=== PATIENT | male | born 1990 | race Caucasian/White ===

== ENCOUNTER 2018-02-28 19:16 | Inpatient (IN) | payer OTHER ==
[~2018-02-28] VITALS: Ht 170.2 cm; Wt 75.3 kg
[2018-02-28 21:30] VITALS: BP 136/76; PULSE 72; RESP 16; TEMP 97.9; O2SAT 98
[2018-02-28] MEDS ORDERED: MAGNESIUM HYDROXIDE SUSP 30 ML CUP PO PRN (21:30)
[2018-02-28] MEDS ORDERED: ALUMINUM/MAGNESIUM/SIMETH 30 ML CUP PO PRN (21:30)
[2018-02-28] MEDS ORDERED: diphenhydrAMINE HCL 50 MG/ML VIAL - HS PRN IM (21:30)
[2018-02-28] MEDS ORDERED: LORazepam 2 MG/ML VIAL IM PRN (21:30)
[2018-02-28] MEDS ORDERED: hydrOXYzine HCL 50 MG TAB PO PRN (21:30)
[2018-03-01 05:49] VITALS: BP 121/70; PULSE 77; RESP 18; TEMP 97.5; O2SAT 98
[2018-03-01] MEDS: NICOTINE 21 MG/24 HR PATCH T-DERMAL SCH (09:00)
[2018-03-01] MEDS ORDERED: OLANZapine IM 10 MG VIAL IM ONE ×2 (09:27→09:30)
--- NOTE | 2018-03-01 12:13 | HHI.PYPN ---
Subjective Remarks Patient is a 27-year-old man, single, previously living with brother currently homeless, unemployed, with a past psychiatric history of of bipolar disorder, 3 previous psychiatric admissions, no previous suicide attempt or self -injurious behavior, substance use history significant for marijuana use, no past medical history, who was brought in under [place] due to patient found dancing in the streets, noncompliant with medications and recently being kicked out of his brother's home which patient was admitted to the inpatient psychiatry unit for further evaluation and management. Prior to interview patient had required ETO due to increasingly manic behavior including dancing, shadowboxing, and intrusiveness with other patients and staff which he received olanzapine 10 mg IM 1. Patient was later seen noted to be lying hospital bed asleep was able to wake up intermittently to cooperate and engage in interview today. Patient states that he "need help with my mind" referring to returning back on his medications. Patient states that he was dancing in the corner of his treatment which a woman had asked him to stop and eventually called police which patient was brought into the hospital for evaluation. Patient states that he has auditory hallucinations that "come in and out" but denying a time of interview. Patient also reported visual hallucinations of demons and paranoid ideations that demons are after him. Mental Status Examination Appearance: Appropriate Consciousness: Alert Orientation: x4 Motor Activity: Normal gait Speech: Unremarkable Language: Adequate Fund of Knowledge: Adequate Attention and Concentration: Adequate Memory: Unremarkable Mood: Appropriate Affect: Appropriate Thought Process & Associations: Intact Thought Content: Bizarre thinking Hallucination Type: Auditory, Visual Delusion Type: Bizarre Suicidal Ideation: No Suicidal Plan: No Suicidal Intention: No Homicidal Ideation: No Homicidal Plan: No Homicidal Intention: No Insight: Poor Judgment: Poor Results Vitals/IOs Vital Signs Date Time Temp Pulse Resp B/P (MAP) Pulse Ox O2 Delivery O2 Flow Rate FiO2 03/01/18 05:49 97.5 77 18 121/70 (87) 98 Assessment & Plan Problem List: (1) Bipolar disorder, current episode manic severe with psychotic features ICD Codes: F31.2 - Bipolar disorder, current episode manic severe with psychotic features Assessment & Plan: Patient is acutely manic and psychotic, I agree and concur with Dr. Portillo assessment and plan. Assessment & Plan Estimated LOS: days Justification for Cont. Inpt. Admission Dangelo Rodriguez MD March 01, 2018 12:13
--- NOTE | 2018-03-01 14:07 | HHI.HP ---
Provisional Diagnosis Admission Date February 28, 2018 at 20:35 [place]. Bipolar disorder, current episode manic Certification of Person's Competence To Provide Express and Informed Consent I have personally examined Heriberto Lopez , a person being served at [facility] on, March 01, 2018 13:57. Express and informed consent means consent voluntarily given in writing, by a competent person, after sufficient explanation and disclosure of the subject matter involved to enable the person to make a knowing and willful decision without any element of force, fraud, deceit, duress, or other form of constraint or coercion. This person is 18 years of age or older, is not now known to be incompetent to consent to treatment with a guardian advocate, and does not have a health care surrogate or proxy currently making medical treatment decisions. I have found this person to be one of the following: [] Competent to provide express and informed consent, as defined above, for voluntary admission to this facility and is competent to provide express and informed consent for treatment. He/she has the consistent capacity to make well reasoned, willful, and knowing decisions concerning his or her medical or mental health treatment. The person fully and consistently understands the purpose of the admission for examination/placement and is fully capable of personally exercising all rights assured under [place] [] Incompetent to provide express and informed consent to voluntary admission, and this is incompetent to provide express and informed consent to treatment. The person must be transferred to involuntary status and a petition for a guardian advocate filed with the Circuit Court. [] Refusing to provide express and informed consent to voluntary admission but is competent to provide express and informed consent for treatment. The person must be discharged or transferred to involuntary status. Form shall be completed within 24 hours of a person's arrival at the receiving facility and filed in the clinical record of each person: 1. Admitted on a voluntary basis 2. Permitted to provide express and informed consent to his/her own treatment 3. Allowed to transfer from involuntary to voluntary status 4. Prior to permitting a person to consent to his or her own treatment after having been previously found incompetent to consent to treatment. History of Present Illness Capacity: Has Capacity HPI Patient is a 27-year-old man, single, previously living with brother currently homeless, unemployed, with a past psychiatric history of of bipolar disorder, 3 previous psychiatric admissions, no previous suicide attempt or self -injurious behavior, substance use history significant for marijuana use, no past medical history, who was brought in under [place] due to patient found dancing in the streets, noncompliant with medications and recently being kicked out of his brother's home which patient was admitted to the inpatient psychiatry unit for further evaluation and management. Prior to interview patient had required ETO due to increasingly manic behavior including dancing, shadowboxing, and intrusiveness with other patients and staff which he received olanzapine 10 mg IM 1. Patient was later seen noted to be lying hospital bed asleep was able to wake up intermittently to cooperate and engage in interview today. Patient states that he "need help with my mind" referring to returning back on his medications. Patient states that he was dancing in the corner of his treatment which a woman had asked him to stop and eventually called police which patient was brought into the hospital for evaluation. Patient states that he has auditory hallucinations that "come in and out" but denying a time of interview. Patient also reported visual hallucinations of demons and paranoid ideations that demons are after him. Past psychiatric history: Previous psychiatric diagnoses of bipolar disorder, 3 previous psychiatric admissions, no previous suicide attempt or self-injurious behavior. Patient denies any outpatient psychiatric services. Previous medication includes Tegretol. Substance use history: Patient reports drinking alcohol "sometimes", reports daily marijuana use, denies any other substance use. Past medical history: Denies, Allergies: NKDA Social history: Single, domiciled recently with his brother, Darren Lopez, but as per chart was recently kicked out, unemployed, recently being [place]. Collateral contact: Darren Lopez, , mother is Aminah Burrows . Legal history as per chart patient with a pending court date for battery charge. Review of Systems Except as stated in HPI: all other systems reviewed are Neg Past Psych History Violence risk - others (6 mos) Elevated due to recent pending charges for battery. Violence risk - self (6 mos) Low Substance Abuse History Drugs/Alcohol past 12 months Patient reports drinking alcohol "sometimes", reports daily marijuana use, denies any other substance use. Past Family Social History Coded Allergies: No Known Allergies (Verified Allergy, Unknown, 02/28/18) Current Medications Medications (Trade) Dose Ordered Sig/Fannie Route Start Time Stop Time Status Last Admin (Ativan) 1 mg Q6H PRN PO 02/28/18 21:30 (Ativan Inj) 1 mg Q6H PRN IM 02/28/18 21:30 (Atarax) 50 mg Q6H PRN PO 02/28/18 21:30 (Benadryl) 50 mg HS PRN PO 02/28/18 21:30 (Benadryl Inj) 50 mg HS PRN IM 02/28/18 21:30 (Tylenol) 650 mg Q4H PRN PO 02/28/18 21:30 (Milk Of Magnesia Liq) 30 ml DAILY PRN PO 02/28/18 21:30 (Mag-Al Plus Susp Liq) 30 ml Q6H PRN PO 02/28/18 21:30 (Habitrol 21 Mg Patch.24 Hr) 1 patch DAILY T-DERMAL 03/01/18 09:00 Miscellaneous Information 1 HS T-DERMAL 03/01/18 21:00 (ZyPREXA) 5 mg Q12HR PO 03/01/18 21:00 Social History Single, domiciled recently with his brother, Darren Lopez, but as per chart was recently kicked out, unemployed, recently being [place]. Collateral contact: Darren Lopez, , mother is Aminah Burrows [phone]. Patient's Strengths (min. 2) Verbal and communicative Physical Exam Patient not noted to be in acute distress, no gross motor abnormalities, no tremors or EPS, no noted psychomotor retardation or agitation. Vital Signs Vital Signs Date Time Temp Pulse Resp B/P (MAP) Pulse Ox O2 Delivery O2 Flow Rate FiO2 03/01/18 05:49 97.5 77 18 121/70 (87) 98 Mental Status Examination Appearance: Dirty, Disheveled Consciousness: Somnolent Orientation: Person, Place Speech: Slow Language: Adequate Fund of Knowledge: Inadequate Attention and Concentration: Inadequate Memory: Impaired Mood: Other ("Not good") Affect: Blunt Thought Process & Associations: Other ([place]) Thought Content: Hallucinations, Delusional Hallucination Type: Auditory, Visual Delusion Type: Bizarre, Paranoid Suicidal Ideation: No Suicidal Plan: No Suicidal Intention: No Homicidal Ideation: No Homicidal Plan: No Homicidal Intention: No Insight: Poor Judgment: Poor Assessment & Plan Problem List: (1) Bipolar disorder, current episode manic severe with psychotic features ICD Codes: F31.2 - Bipolar disorder, current episode manic severe with psychotic features Assessment & Plan Estimated LOS: 5-7 days. Patient is a 27-year-old man, single, previously living with brother currently homeless, unemployed, with a past psychiatric history of of bipolar disorder, 3 previous psychiatric admissions, no previous suicide attempt or self-injurious behavior, substance use history significant for marijuana use, no past medical history, who was brought in under [place] due to patient found dancing in the streets, noncompliant with medications and recently being kicked out of his brother's home which patient was admitted to the inpatient psychiatry unit for further evaluation and management. Patient this time will be admitted under involuntary hospitalization first opinion started, we will request second opinion. patient retains capacity to consent for medications. We will start olanzapine 5 mg p.o. twice daily for psychosis and mood stabilization. Continue monitor mood and behavior. Social work intervention for psychosocial assessment. Collateral formation pending. Discharge planning in progress. Discharge Planning To be determined. Flo Portillo MD March 01, 2018 14:07
[2018-03-01] MEDS: LORazepam 1 MG TAB PO PRN (15:14)
[2018-03-01 16:35] VITALS: BP 129/69; PULSE 79; RESP 18; TEMP 97.2; O2SAT 99
[2018-03-01] MEDS: REMOVE OLD NICOTINE PATCH T-DERMAL SCH (21:00)
[2018-03-01] MEDS: OLANZapine 5 MG TAB PO SCH (21:31)
[2018-03-02 06:32] VITALS: BP 124/74; PULSE 80; RESP 20; TEMP 97.6; O2SAT 99
[2018-03-02] MEDS: OLANZapine 5 MG TAB PO SCH ×3 (07:16→21:00)
[2018-03-02] MEDS: NICOTINE 21 MG/24 HR PATCH T-DERMAL SCH (09:00)
--- NOTE | 2018-03-02 14:31 | HHI.PYPN ---
Subjective Remarks Patient was seen and case discussed with nursing. Patient had a temper tantrum this morning when he got loud started getting aggressive. He got an ETO of Ativan. He was later seen in locked seclusion jumping on the bed and throwing pillows. Medication reviewed and he does not have IM backup of Zyprexa. Psychoeducation done with patient and he agreed to take p.o. Zyprexa. Insight and general is poor and affect remains labile. He denies hallucinations but is likely responding to internal stimuli Mental Status Examination Appearance: Dirty, Disheveled Consciousness: Somnolent Orientation: Person, Place Speech: Slow Language: Adequate Fund of Knowledge: Inadequate Attention and Concentration: Inadequate Memory: Impaired Mood: Angry, Oppositional, Other ("Not good") Affect: Blunt Thought Process & Associations: Other ([place]) Thought Content: Hallucinations, Delusional Hallucination Type: Auditory, Visual Delusion Type: Bizarre, Paranoid Suicidal Ideation: No Suicidal Plan: No Suicidal Intention: No Homicidal Ideation: No Homicidal Plan: No Homicidal Intention: No Insight: Poor Judgment: Poor Results Vitals/IOs Vital Signs Date Time Temp Pulse Resp B/P (MAP) Pulse Ox O2 Delivery O2 Flow Rate FiO2 03/02/18 06:32 97.6 80 20 124/74 (91) 99 Assessment & Plan Problem List: (1) Bipolar disorder, current episode manic severe with psychotic features ICD Codes: F31.2 - Bipolar disorder, current episode manic severe with psychotic features Assessment & Plan Add IM backup of Zyprexa Justification for Cont. Inpt. Patient would decompensate in a less restrictive setting Felton Duggan DO March 02, 2018 14:31
[2018-03-02] MEDS ORDERED: OLANZapine IM 10 MG VIAL IM PRN (14:45)
[2018-03-02] MEDS ORDERED: HALOPERIDOL LACTATE 5 MG/ML AMP ONE (16:31)
[2018-03-02] MEDS ORDERED: diphenhydrAMINE HCL 50 MG/ML VIAL IM ONE (16:39)
[2018-03-02] MEDS ORDERED: HALOPERIDOL LACTATE 5 MG/ML AMP IM ONE (16:39)
[2018-03-02] MEDS ORDERED: LORazepam 2 MG/ML VIAL IM ONE (16:39)
[2018-03-02] MEDS: REMOVE OLD NICOTINE PATCH T-DERMAL SCH (21:00)
[2018-03-03] MEDS: LORazepam 1 MG TAB PO PRN ×2 (02:57→17:37)
[2018-03-03 06:39] VITALS: BP 115/71; PULSE 70; RESP 18; TEMP 97.1; O2SAT 97
[2018-03-03] MEDS: NICOTINE 21 MG/24 HR PATCH T-DERMAL SCH (08:13)
[2018-03-03] MEDS: OLANZapine 5 MG TAB PO SCH (08:54)
--- NOTE | 2018-03-03 14:44 | HHI.PYPN ---
Subjective Remarks Patient was seen and case discussed with nursing. Patient has improved. He is no longer aggressive or threatening. He remains elevated and grandiose. Patient has bizarre delusion that Min aD Silva wants him to sing and perform for him. He does not plan to seek out on the president Mental Status Examination Appearance: Dirty, Disheveled Consciousness: Somnolent Orientation: Person, Place Speech: Slow Language: Adequate Fund of Knowledge: Inadequate Attention and Concentration: Inadequate Memory: Impaired Mood: Angry, Oppositional, Other ("Not good") Affect: Blunt Thought Process & Associations: Other ([place]) Thought Content: Hallucinations, Delusional Hallucination Type: Auditory (The devil and Lucifer) Delusion Type: Bizarre, Paranoid Suicidal Ideation: No Suicidal Plan: No Suicidal Intention: No Homicidal Ideation: No Homicidal Plan: No Homicidal Intention: No Insight: Poor Judgment: Poor Results Vitals/IOs Vital Signs Date Time Temp Pulse Resp B/P (MAP) Pulse Ox O2 Delivery O2 Flow Rate FiO2 03/03/18 06:39 97.1 70 18 115/71 (86) 97 Assessment & Plan Problem List: (1) Bipolar disorder, current episode manic severe with psychotic features ICD Codes: F31.2 - Bipolar disorder, current episode manic severe with psychotic features Assessment & Plan We will increase Zyprexa to 10 mg p.o. twice daily Justification for Cont. Inpt. Patient would decompensate in a less restrictive setting Felton Duggan DO March 03, 2018 14:44
[2018-03-03 17:09] VITALS: BP 112/67; PULSE 68; RESP 17; TEMP 97.5; O2SAT 98
[2018-03-03] MEDS: OLANZapine 10 MG TAB PO SCH (20:39)
[2018-03-03] MEDS: REMOVE OLD NICOTINE PATCH T-DERMAL SCH (21:00)
[2018-03-03] MEDS: ACETAMINOPHEN 325 MG TAB PO PRN (21:23)
[2018-03-04] MEDS: ACETAMINOPHEN 325 MG TAB PO PRN (01:42)
[2018-03-04] MEDS: LORazepam 1 MG TAB PO PRN ×2 (01:42→20:35)
[2018-03-04 07:08] VITALS: BP 118/71; PULSE 79; RESP 20; TEMP 97.6; O2SAT 99
[2018-03-04] MEDS: OLANZapine 10 MG TAB PO SCH ×2 (08:52→20:35)
[2018-03-04] MEDS: NICOTINE 21 MG/24 HR PATCH T-DERMAL SCH (08:52)
--- NOTE | 2018-03-04 14:15 | HHI.PYPN ---
Subjective Remarks Patient seen for follow, chart reviewed. Discussion nursing staff reported the patient slept 2 hours last evening had required Ativan as needed at 2 AM, patient noted to be jumping up and down the bed last evening. Patient noted to be testing limits on the unit, but compliant with treatment. Patient was found and being in a day room noted to be inappropriate sexually preoccupied with nurses. Patient states that he has been having difficulty sleeping, continues to endorse having auditory or visual hallucinations stating that he hears voices of taoist figures as well as seeing demons and angels and noted to be religiously preoccupied. Patient states "I love Lucifer". He states that that is "my power" referring to his auditory or visual hallucinations states that previous medication trials have never made the perceptual disturbances go away. Patient reports having attempted to contact his mother but has been unsuccessful. Patient states that he is considering staying with his mother but states that his mother lives in [place] and then possibly he could also return to live with his brother here in [place] if he is accepted back. Review of Systems Except as stated in HPI: all other systems reviewed are Neg Mental Status Examination Appearance: Appropriate Consciousness: Alert Orientation: x4 Motor Activity: Normal gait Speech: Unremarkable Language: Adequate Fund of Knowledge: Adequate Attention and Concentration: Adequate Memory: Unremarkable Mood: Appropriate Affect: Appropriate Thought Process & Associations: Intact Thought Content: Bizarre thinking, Delusional Hallucination Type: Auditory, Visual Delusion Type: Bizarre (Power to hear and see angels and demons) Suicidal Ideation: No Suicidal Plan: No Suicidal Intention: No Homicidal Ideation: No Homicidal Plan: No Homicidal Intention: No Insight: Poor Judgment: Poor Results Vitals/IOs Vital Signs Date Time Temp Pulse Resp B/P (MAP) Pulse Ox O2 Delivery O2 Flow Rate FiO2 03/04/18 07:08 97.6 79 20 118/71 (87) 99 Assessment & Plan Problem List: (1) Bipolar disorder, current episode manic severe with psychotic features ICD Codes: F31.2 - Bipolar disorder, current episode manic severe with psychotic features Assessment & Plan Patient this time continues with psychotic symptoms, with poor sleep but no aggressive behavior recently. Olanzapine was recently increased to 10 mg p.o. twice daily yesterday. We will continue with his current treatment continue to monitor mood and behavior. The patient has continued limited response will consider adding another mood stabilizer such as Depakote to the regimen. Collateral information pending from family. Discharge planning in progress. Justification for Cont. Inpt. At risk for further decompensation if at lower level of care. Discharge Planning To be determined. Flo Portillo MD March 04, 2018 14:15
--- NOTE | 2018-03-04 16:13 | PD.TTN ---
Patient Problems 1. Discharge planning 2. Medication compliance 3. Knowledge deficit 4. Lack of coping skills Progress Toward Goals Provider Present: Dr. Nely Poritllo Provider Input: Dr. Portillo had his treatment team meeting to discuss patient's discharge, medication, and treatment. Patient is to remain for further stablization. Nurse(s) Input: Patient only slept for several hours. presented agitated Psychiatric Counselors Present: Skye Angelo [facility] Psych Therapist Input: Patient seen in day room watching tv. Patient was pleasant, cooperative but guarded. Denies suicidal and homicidal ideation,. Denies anyone trying to harm patient. Group Spec/RT/OT/AHUMADA Present: Jhon Christianson OT Group Spec/RT/OT/AHUMADA Input: Patient does not participate in groups. Skye Angelo [facility] March 04, 2018 16:13
[2018-03-04 17:05] VITALS: BP 132/69; PULSE 89; RESP 16; TEMP 98; O2SAT 99
[2018-03-04] MEDS: REMOVE OLD NICOTINE PATCH T-DERMAL SCH (20:35)
[2018-03-04] MEDS: diphenhydrAMINE HCL 50 MG CAP - HS PRN PO (21:10)
[2018-03-05 06:10] VITALS: BP 109/64; PULSE 101; RESP 18; TEMP 97.7; O2SAT 100
[2018-03-05] MEDS: OLANZapine 10 MG TAB PO SCH ×2 (08:21→20:16)
[2018-03-05] MEDS: NICOTINE 21 MG/24 HR PATCH T-DERMAL SCH (08:25)
[2018-03-05] MEDS: DIVALPROEX DR 500 MG TABEC PO SCH ×2 (09:00→15:48)
[2018-03-05] MEDS: LORazepam 1 MG TAB PO PRN (10:17)
[2018-03-05 13:38] LABS: AUTOMATED NEUTROPHIL # 3.6 TH/MM3 (1.8-7.7); BASOPHIL % 0.5 % (0.0-2.0); EOSINOPHIL # 0.1 TH/MM3 (0-0.4); EOSINOPHIL % 1.9 % (0.0-4.0); HEMATOCRIT 43.3 % (39.0-51.0); HEMOGLOBIN 14.8 GM/DL (13.0-17.0); LYMPH % 30.7 % (9.0-44.0); LYMPHOCYTE # 1.9 TH/MM3 (1.0-4.8); MEAN CELL VOLUME 86.2 FL (80.0-100.0); MEAN CORPUSCULAR HEMOGLOBIN 29.4 PG (27.0-34.0); MEAN CORPUSCULAR HGB CONC 34.1 % (32.0-36.0); MEAN PLATELET VOLUME 9.2 FL (7.0-11.0); MONO % 8.8 % (0.0-8.0); MONOCYTE # 0.5 TH/MM3 (0-0.9); NEUT % 58.1 % (16.0-70.0); PLATELET COUNT 288 TH/MM3 (150-450); RED BLOOD COUNT 5.03 MIL/MM3 (4.50-5.90); RED CELL DISTRIBUTION WIDTH 12.9 % (11.6-17.2); WHITE BLOOD COUNT 6.2 TH/MM3 (4.0-11.0)
[2018-03-05 14:12] LABS: ALBUMIN 3.8 GM/DL (3.4-5.0); CALCIUM 8.9 MG/DL (8.5-10.1); CREATININE 0.93 MG/DL (0.60-1.30)
[2018-03-05 14:15] LABS: DIRECT BILIRUBIN ADULT 0.1 MG/DL (0.0-0.2); INDIRECT BILIRUBIN 0.2 MG/DL (0.0-0.8); TOTAL BILIRUBIN ADULT 0.3 MG/DL (0.2-1.0); TOTAL PROTEIN 7.4 GM/DL (6.4-8.2)
--- NOTE | 2018-03-05 14:30 | HHI.PYPN ---
Subjective Remarks Patient seen for follow, chart reviewed. Discussion nursing staff reported the patient was noted to go into another female patient's room and had to be redirected this morning, has compliant with medications slept well and occasionally reporting having auditory or visual hallucinations of angels and demons. Patient was found sitting in the hallway noted B, cooperative. 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 Patient states that he does receive some financial assistance from his family specifically his mother Wero Kasper who sends him money at times. Patient states that he was living previously with his brother in [place] but may not be able to return there. Patient states that his goals are to get back to work and to see his children. Patient denying any auditory or visual hallucinations today. Patient was encouraged to continue treatment, refuse starting Depakote earlier this morning. Denies any suicidal homicidal ideations. Review of Systems Except as stated in HPI: all other systems reviewed are Neg Mental Status Examination Appearance: Appropriate Consciousness: Alert Orientation: x4 Motor Activity: Normal gait Speech: Unremarkable Language: Adequate Fund of Knowledge: Adequate Attention and Concentration: Adequate Memory: Unremarkable Mood: Appropriate Affect: Appropriate Thought Process & Associations: Intact Thought Content: Bizarre thinking, Delusional (Denies today) Hallucination Type: Auditory (Denies today), Visual (Denies today) Delusion Type: Bizarre (Denies today) Suicidal Ideation: No Suicidal Plan: No Suicidal Intention: No Homicidal Ideation: No Homicidal Plan: No Homicidal Intention: No Insight: Poor Judgment: Poor Results Labs Labs reviewed Test 03/05/18 13:00 White Blood Count 6.2 TH/MM3 Red Blood Count 5.03 MIL/MM3 Hemoglobin 14.8 GM/DL Hematocrit 43.3 % Mean Corpuscular Volume 86.2 FL Mean Corpuscular Hemoglobin 29.4 PG Mean Corpuscular Hemoglobin Concent 34.1 % Red Cell Distribution Width 12.9 % Platelet Count 288 TH/MM3 Mean Platelet Volume 9.2 FL Neutrophils (%) (Auto) 58.1 % Lymphocytes (%) (Auto) 30.7 % Monocytes (%) (Auto) 8.8 % Eosinophils (%) (Auto) 1.9 % Basophils (%) (Auto) 0.5 % Neutrophils # (Auto) 3.6 TH/MM3 Lymphocytes # (Auto) 1.9 TH/MM3 Monocytes # (Auto) 0.5 TH/MM3 Eosinophils # (Auto) 0.1 TH/MM3 Basophils # (Auto) 0.0 TH/MM3 CBC Comment DIFF FINAL Differential Comment Blood Urea Nitrogen 11 MG/DL Creatinine 0.93 MG/DL Random Glucose 81 MG/DL Total Protein 7.4 GM/DL Albumin 3.8 GM/DL Calcium Level 8.9 MG/DL Alkaline Phosphatase 122 U/L Aspartate Amino Transf (AST/SGOT) 24 U/L Alanine Aminotransferase (ALT/SGPT) 35 U/L Total Bilirubin 0.3 MG/DL Direct Bilirubin 0.1 MG/DL Sodium Level 140 MEQ/L Potassium Level 4.1 MEQ/L Chloride Level 103 MEQ/L Carbon Dioxide Level 30.0 MEQ/L Anion Gap 7 MEQ/L Estimat Glomerular Filtration Rate 97 ML/MIN Indirect Bilirubin 0.2 MG/DL Total Creatine Kinase 167 U/L Vitals/IOs Vital Signs Date Time Temp Pulse Resp B/P (MAP) Pulse Ox O2 Delivery O2 Flow Rate FiO2 03/05/18 06:10 97.7 101 18 109/64 (79) 100 Assessment & Plan Problem List: (1) Bipolar disorder, current episode manic severe with psychotic features ICD Codes: F31.2 - Bipolar disorder, current episode manic severe with psychotic features Assessment & Plan Patient at this time noted to be intrusive with a female patient, compliant with his medications but refused starting Depakote today. Patient with no aggressive behaviors today but continues to have labile behaviors on the unit. Continue monitor with behavior. Collateral formation pending from family. Continue to encourage patient to maintain compliance for mood stabilization. Discharge planning in progress. Justification for Cont. Inpt. At risk for further decompensation if at lower level of care Discharge Planning To be determined Flo Portillo MD March 05, 2018 14:30
[2018-03-05] MEDS ORDERED: OLANZapine IM 10 MG VIAL IM ONE ×2 (16:14→16:30)
[2018-03-05 18:30] VITALS: BP 119/70; PULSE 83; RESP 18; TEMP 97.7; O2SAT 100
[2018-03-05] MEDS ORDERED: HALOPERIDOL LACTATE 5 MG/ML AMP ONE (19:17)
[2018-03-05] MEDS: HALOPERIDOL LACTATE 5 MG/ML AMP IM ONE ×2 (19:26→19:28)
[2018-03-05] MEDS ORDERED: LORazepam 2 MG/ML VIAL IM ONE (19:30)
[2018-03-05] MEDS: REMOVE OLD NICOTINE PATCH T-DERMAL SCH (21:00)
[2018-03-06 06:32] VITALS: BP 118/74; PULSE 70; RESP 18; TEMP 97.5; O2SAT 99
[2018-03-06] MEDS: DIVALPROEX DR 500 MG TABEC PO SCH ×2 (09:24→20:44)
[2018-03-06] MEDS: OLANZapine 10 MG TAB PO SCH ×2 (09:24→20:44)
[2018-03-06] MEDS: NICOTINE 21 MG/24 HR PATCH T-DERMAL SCH (09:24)
[2018-03-06] MEDS ORDERED: LORazepam 2 MG TAB PO ONE (12:30)
[2018-03-06] MEDS ORDERED: HALOPERIDOL LACTATE 5 MG/ML AMP ONE (14:02)
[2018-03-06] MEDS ORDERED: HALOPERIDOL LACTATE 5 MG/ML AMP IM ONE (14:30)
[2018-03-06] MEDS ORDERED: diphenhydrAMINE HCL 50 MG/ML VIAL IM ONE (14:30)
--- NOTE | 2018-03-06 14:31 | PD.TTN ---
Patient Problems 1. Discharge planning 2. Medication compliance 3. Knowledge deficit 4. Lack of coping skills Progress Toward Goals Provider Present: Dr. Nely Portillo (03/05/18- wants to tlak to the family but will need an overlock waistline joiner due to primarily urdu speaking family.) Provider Input: Dr. Portillo had his treatment team meeting to discuss patient's discharge, medication, and treatment. Patient is to remain for further stablization. Nurse(s) Input: Patient only slept for several hours. presented agitated Psychiatric Counselors Present: Huma Nunez LCSW (03/05/18- Pt. needs SSDI, pt. has no income.), Skye Angelo, [facility] Psych Therapist Input: Patient seen in day room watching tv. Patient was pleasant, cooperative but guarded. Denies suicidal and homicidal ideation,. Denies anyone trying to harm patient. Group Spec/RT/OT/AHUMADA Present: Jhon Christianson OT, BRANDYN Chandra (03/05/18 - Pt. attends many groups. Pt. is often manic but appropriate during rec therapy groups.) Group Spec/RT/OT/AHUMADA Input: Patient does not participate in groups. Kel Dale March 06, 2018 14:31
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
[2018-03-06 17:00] VITALS: BP 116/67; PULSE 86; RESP 17; TEMP 96.5; O2SAT 99
[2018-03-06] MEDS: REMOVE OLD NICOTINE PATCH T-DERMAL SCH (20:44)
[2018-03-07 06:08] VITALS: BP 116/64; PULSE 66; RESP 18; TEMP 95.8; O2SAT 98
[2018-03-07] MEDS: OLANZapine 10 MG TAB PO SCH ×2 (08:57→21:04)
[2018-03-07] MEDS: DIVALPROEX DR 500 MG TABEC PO SCH (08:57)
[2018-03-07] MEDS: NICOTINE 21 MG/24 HR PATCH T-DERMAL SCH (09:00)
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
[2018-03-07 18:24] VITALS: BP 112/58; PULSE 81; RESP 16; TEMP 97.5; O2SAT 99
[2018-03-07] MEDS: REMOVE OLD NICOTINE PATCH T-DERMAL SCH (21:00)
[2018-03-07] MEDS: clonazePAM 0.5 MG TAB PO SCH (21:04)
[2018-03-07] MEDS: VALPROIC ACID SYRUP 250 MG/5 ML UDC PO SCH (21:04)
[2018-03-08 06:20] VITALS: BP 121/61; PULSE 70; RESP 18; TEMP 97.4; O2SAT 98
[2018-03-08] MEDS: VALPROIC ACID SYRUP 250 MG/5 ML UDC PO SCH ×2 (08:45→21:03)
[2018-03-08] MEDS: OLANZapine 10 MG TAB PO SCH ×2 (08:45→21:03)
[2018-03-08] MEDS: clonazePAM 0.5 MG TAB PO SCH ×2 (08:45→21:03)
[2018-03-08] MEDS: NICOTINE 21 MG/24 HR PATCH T-DERMAL SCH (08:48)
--- NOTE | 2018-03-08 17:41 | HHI.PYPN ---
Subjective Remarks Patient seen for follow-up, chart reviewed. Discussion with nursing staff reported that the patient noted with less intrusive behavior, not jumping on chairs, redirectible, not requireing ETO today. Patient was found ambulating on the unit, calm and cooperative. Patient states that he needs to be discarhged to go and work and support himself. He states that he does not need to live with his family as he is a grown man. He denies any depressive symptoms , agrees with continuing medications. He deneis any perceptual disturbances. Review of Systems Except as stated in HPI: all other systems reviewed are Neg Mental Status Examination Appearance: Appropriate Consciousness: Alert Orientation: x4 Motor Activity: Normal gait Speech: Unremarkable Language: Adequate Fund of Knowledge: Adequate Attention and Concentration: Adequate Memory: Unremarkable Mood: Irritable Affect: Irritable (less today) Thought Process & Associations: Intact Thought Content: Bizarre thinking, Delusional (Religiously preoccupied) Hallucination Type: Auditory (Denies today) Delusion Type: Bizarre (Denies today) Suicidal Ideation: No Suicidal Plan: No Suicidal Intention: No Homicidal Ideation: No Homicidal Plan: No Homicidal Intention: No Insight: Poor Judgment: Poor Results Vitals/IOs Vital Signs Date Time Temp Pulse Resp B/P (MAP) Pulse Ox O2 Delivery O2 Flow Rate FiO2 03/08/18 06:20 97.4 70 18 121/61 (81) 98 Assessment & Plan Problem List: (1) Bipolar disorder, current episode manic severe with psychotic features ICD Codes: F31.2 - Bipolar disorder, current episode manic severe with psychotic features Assessment & Plan Patient with improvement of mood with noted less irritability, more frustration tolerance and no ETO today. Continue current treatment, continue to monitor mood and behavior. Discharge planning in progress. Justification for Cont. Inpt. At risk for further decompensation at lower level of care. Discharge Planning To be determined. Flo Portillo MD March 08, 2018 17:41
[2018-03-08 17:51] VITALS: BP 121/55; PULSE 99; RESP 17; TEMP 98.5; O2SAT 100
[2018-03-08] MEDS: ACETAMINOPHEN 325 MG TAB PO PRN (18:16)
[2018-03-08] MEDS: REMOVE OLD NICOTINE PATCH T-DERMAL SCH (21:00)
[2018-03-09] MEDS: ACETAMINOPHEN 325 MG TAB PO PRN ×2 (02:19→17:20)
[2018-03-09 06:06] VITALS: BP 126/58; PULSE 92; RESP 16; TEMP 97.6; O2SAT 98
[2018-03-09] MEDS: clonazePAM 0.5 MG TAB PO SCH ×2 (08:48→20:41)
[2018-03-09] MEDS: OLANZapine 10 MG TAB PO SCH ×2 (08:48→20:41)
[2018-03-09] MEDS: VALPROIC ACID SYRUP 250 MG/5 ML UDC PO SCH ×2 (08:49→20:41)
[2018-03-09] MEDS: NICOTINE 21 MG/24 HR PATCH T-DERMAL SCH (08:51)
--- NOTE | 2018-03-09 14:22 | HHI.PYPN ---
Subjective Remarks Patient was seen and case discussed with nursing. Patient is pleasant and cooperative with exam. Is compliant with his medications. He is less elevated and is no longer dancing on the bed. Less grandiose. Compliant with his medications and behaving well on the unit. Social with others Mental Status Examination Appearance: Appropriate Consciousness: Alert Orientation: x4 Motor Activity: Normal gait Speech: Unremarkable Language: Adequate Fund of Knowledge: Adequate Attention and Concentration: Adequate Memory: Unremarkable Mood: Irritable Affect: Appropriate Thought Process & Associations: Intact Thought Content: Bizarre thinking, Delusional (Religiously preoccupied) Hallucination Type: Auditory (Denies today) Delusion Type: Bizarre (Denies today) Suicidal Ideation: No Suicidal Plan: No Suicidal Intention: No Homicidal Ideation: No Homicidal Plan: No Homicidal Intention: No Insight: Poor Judgment: Poor Results Vitals/IOs Vital Signs Date Time Temp Pulse Resp B/P (MAP) Pulse Ox O2 Delivery O2 Flow Rate FiO2 03/09/18 06:06 97.6 92 16 126/58 (80) 98 Assessment & Plan Problem List: (1) Bipolar disorder, current episode manic severe with psychotic features ICD Codes: F31.2 - Bipolar disorder, current episode manic severe with psychotic features Assessment & Plan Continue current treatment plan Justification for Cont. Inpt. Patient would decompensate in a less restrictive setting Felton Duggan DO March 09, 2018 14:22
[2018-03-09 18:43] VITALS: BP 127/59; PULSE 91; RESP 17; TEMP 97.7; O2SAT 98
[2018-03-09] MEDS: diphenhydrAMINE HCL 50 MG CAP - HS PRN PO (20:42)
[2018-03-09] MEDS: REMOVE OLD NICOTINE PATCH T-DERMAL SCH (20:43)
[2018-03-10] MEDS: LORazepam 1 MG TAB PO PRN (02:03)
[2018-03-10] MEDS: ACETAMINOPHEN 325 MG TAB PO PRN ×3 (02:04→18:59)
[2018-03-10 05:36] VITALS: BP 104/61; PULSE 82; RESP 18; TEMP 97; O2SAT 100
[2018-03-10] MEDS: NICOTINE 21 MG/24 HR PATCH T-DERMAL SCH (09:00)
[2018-03-10] MEDS: clonazePAM 0.5 MG TAB PO SCH ×2 (09:05→21:17)
[2018-03-10] MEDS: OLANZapine 10 MG TAB PO SCH ×2 (09:05→21:17)
[2018-03-10] MEDS: VALPROIC ACID SYRUP 250 MG/5 ML UDC PO SCH ×2 (09:06→21:17)
--- NOTE | 2018-03-10 14:33 | HHI.PYPN ---
Subjective Remarks Patient was seen and case discussed with nursing. Patient is neatly dressed today. His calm pleasant and cooperative. Appears less grandiose and internally stimulated. However, per report from last night he was loud and intrusive overnight. Doing push-ups at 3 AM Mental Status Examination Appearance: Appropriate Consciousness: Alert Orientation: x4 Motor Activity: Normal gait Speech: Unremarkable Language: Adequate Fund of Knowledge: Adequate Attention and Concentration: Adequate Memory: Unremarkable Mood: Irritable Affect: Appropriate Thought Process & Associations: Intact Thought Content: Bizarre thinking, Delusional (Religiously preoccupied) Hallucination Type: Auditory (Denies today) Delusion Type: Bizarre (Denies today) Suicidal Ideation: No Suicidal Plan: No Suicidal Intention: No Homicidal Ideation: No Homicidal Plan: No Homicidal Intention: No Insight: Poor Judgment: Poor Results Labs Test 03/10/18 06:20 Valproic Acid (Depakene) Level 61 MCG/ML Vitals/IOs Vital Signs Date Time Temp Pulse Resp B/P (MAP) Pulse Ox O2 Delivery O2 Flow Rate FiO2 03/10/18 05:36 97.0 82 18 104/61 (75) 100 Assessment & Plan Problem List: (1) Bipolar disorder, current episode manic severe with psychotic features ICD Codes: F31.2 - Bipolar disorder, current episode manic severe with psychotic features Assessment & Plan Patient would decompensate in a less restrictive setting Justification for Cont. Inpt. Continue current treatment plan Felton Duggan DO March 10, 2018 14:33
[2018-03-10] MEDS: REMOVE OLD NICOTINE PATCH T-DERMAL SCH (21:00)
[2018-03-11 06:20] VITALS: BP_SYST 110; BP_SYST 114; BP_DIAS 70; PULSE 78; PULSE 86; RESP 18; TEMP 97.3; O2SAT 98
[2018-03-11] MEDS: VALPROIC ACID SYRUP 250 MG/5 ML UDC PO SCH (08:37)
[2018-03-11] MEDS: OLANZapine 10 MG TAB PO SCH (08:38)
[2018-03-11] MEDS: clonazePAM 0.5 MG TAB PO SCH (08:38)
[2018-03-11] MEDS: ACETAMINOPHEN 325 MG TAB PO PRN (08:38)
[2018-03-11] MEDS: NICOTINE 21 MG/24 HR PATCH T-DERMAL SCH (09:00)
[2018-03-11] MEDS ORDERED: OLAN10TA PO (11:00)
[2018-03-11] MEDS ORDERED: DEPA500T PO (11:00)
[2018-03-11] MEDS ORDERED: CLON.5 PO (11:00)
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
--- NOTE | 2018-03-11 15:31 | PD.TTN ---
Patient Problems 1. Discharge planning 2. Medication compliance 3. Knowledge deficit 4. Lack of coping skills Progress Toward Goals Provider Present: Dr. Nely Portillo (03/05/18- wants to [place] to the family but will need an manager [place] due to primarily [place]ian speaking family.) Provider Input: Dr. Portillo had his treatment team meeting to discuss patient's discharge, medication, and treatment. Patient is to remain for further stablization. 03/15/18- Meets criteria for discharge. Nurse(s) Input: Patient only slept for several hours. presented agitated Psychiatric Counselors Present: Huma Nunez LCSW (03/05/18- Pt. needs SSDI, pt. has no income.), Skye Angelo, [facility], Geraldo Ragsdale Jr., [facility] (03/15/18- Pt. discharged today.) Psych Therapist Input: Patient seen in day room watching tv. Patient was pleasant, cooperative but guarded. Denies suicidal and homicidal ideation,. Denies anyone trying to harm patient. Group Spec/RT/OT/[place] Present: Jhon Christianson OT, BRANDYN Chandra (03/05/18 - Pt. attends many groups. Pt. is often manic but appropriate during rec therapy groups. 03/15/18- Pt. attends groups regularly.) Group Spec/RT/OT/AHUMADA Input: Patient does not participate in groups. Kel Dale March 11, 2018 15:30
== END 2018-03-11 17:28 | disposition home or self-care (01) | DRG 885 ==
LOC: H270 20:35
PROVIDERS: ADMIT Student in an Organized Health Care Education/Training Program; ATTEND Student in an Organized Health Care Education/Training Program
DX: F31.2 Bipolar disorder, current episode manic severe with psychotic features (principal); F12.90 Cannabis use, unspecified, uncomplicated
CPT/HCPCS: 80048; 80076; 80164; 82550; 85025; J1200; J1630; J2060; Q0163